=== PATIENT | female | born 1955 | race Caucasian/White ===

== ENCOUNTER → 2016-07-22 07:26 | Outpatient (CLI) | payer MEDICARE ==
[2016-04-08 08:33] VITALS: BMI 31.1
[~2016-07-22 07:26] MED LIST: BENTYL 20 MG TA20 MG PO; BYDUREON P2 MG/0.65 SC; DEXILANT60 MG PO; DYAZIDE 37.5/251 CAP PO; ESTRACE1 MG PO; FLUTICASONE PRO16 GM NASAL; GEMFIBROZIL600 MG PO; GLUCOPHAGE500 MG PO; HYDROCODONE-APA1 TAB PO; LINZESS290 MCG PO; METFORMIN HCL500 M1 PO; MOBIC7.5 MG PO; MOTRIN600 MG PO; NEXIUM40 MG PO; PERCOCET 5-3251 TAB PO; PERCOCET 7.5/321 TAB PO; PHENERGAN25 M1 PO; PREMARIN0.625 MG PO; PRILOSEC20 MG PO; PROMETRIUM200 MG PO; REGLAN10 MG PO; REQUIP1 MG PO; REXULTI1 MG PO; SYNTHROID50 MCG PO; TRINTELLIX5 MG PO; XANAX0.5 MG PO; ZOLOFT100 MG PO; ZYRTEC10 MG PO
== END | disposition home or self-care (01) ==
LOC: D.RAD 07:26
DX: R13.10 Dysphagia, unspecified (principal); R11.2 Nausea with vomiting, unspecified

== ENCOUNTER → 2016-08-27 17:02 | Outpatient (CLI) | payer MEDICARE ==
[2016-04-08 08:33] VITALS: BMI 31.1
== END | disposition home or self-care (01) ==
LOC: D.MAMMO 13:15
DX: Z12.31 Encounter for screening mammogram for malignant neoplasm of breast (principal)

== ENCOUNTER 2016-09-02 05:09 | Day surgery (SDC) | payer MEDICARE ==
[2016-09-01 14:46] LABS: BASOPHILS 0.4 % (0.0-2.0); EOSINOPHILS 2.6 % (0-7); HEMATOCRIT 38.8 % (36.0-48.0); HEMOGLOBIN 12.8 g/dL (12-16); IMMATURE GRANULOCYTES 0.1 % (0-5); LYMPHOCYTES 32.5 % (15-50); MCH 28.5 pg (26.0-34.0); MCV 86.4 fL (80.0-100.0); MEAN PLATELET VOLUME 9.4 fL (7.4-10.4); MONOCYTES 5.3 % (2-11); NEUTROPHILS 59.1 % (40-80); PLATELET COUNT 223 10x3/uL (130-400); RBC 4.49 10x6/uL (4.00-5.40); RDW 13.5 % (11.5-14.5); WBC 7.2 10x3/uL (4.8-10.8)
[2016-09-01 15:14] LABS: ANION GAP 12.5 mmol/L (8-16); CALCIUM 8.8 mg/dL (8.5-10.1); CARBON DIOXIDE 26.6 mmol/L (21.0-32.0); CREATININE - SERUM 0.9 mg/dL (0.6-1.3); POTASSIUM - SERUM 4.1 mmol/L (3.5-5.1)
[2016-09-02] VITALS (11 sets, daily range): BP systolic 118–137; BP diastolic 74–85; Ht 157.5 cm; Wt 75.0 kg
[~2016-09-02] VITALS: Ht 157.5 cm; Wt 75.0 kg
[~2016-09-02 05:09] MED LIST changes: -BYDUREON P2 MG/0.65 SC; -FLUTICASONE PRO16 GM NASAL; -METFORMIN HCL500 M1 PO; -PHENERGAN25 M1 PO; -REGLAN10 MG PO; -REXULTI1 MG PO; -TRINTELLIX5 MG PO
[2016-09-02] MEDS ORDERED: NEXIUM40 MG PO (08:11)
[2016-09-02] MEDS ORDERED: REXULTI1 MG PO (08:14)
[2016-09-02] MEDS ORDERED: TRINTELLIX5 MG PO (08:14)
[2016-09-02] MEDS ORDERED: METFORMIN HCL500 M1 PO (08:15)
[2016-09-02] MEDS ORDERED: FLUTICASONE PRO16 GM NASAL (08:16)
[2016-09-02] MEDS ORDERED: BYDUREON P2 MG/0.65 SC (08:16)
--- NOTE | 2016-09-02 09:42 | NUR ---
YELLOW FIN RETRACTORS AND BUTTOCK STRAP USED FOR POSITIONING.
--- NOTE | 2016-09-02 11:40 | NUR ---
PATIENT RECEIVED TO FLOOR FROM PACU VIA BED. NO SIGNS OF DISTRESS NOTED. VITAL SIGNS STABLE. RESTING QUIETLY WITH EYES CLOSED. WAKES EASY WHEN SPOKE TO. ORIENTED TO ROOM. LAP SITES X5 TO ABD. SCDS ON BILATERALLY. SIDE RAILS UP X2. BED IN LOW POSITION. CALL LIGHT IN REACH.
--- NOTE | 2016-09-02 11:44 | NUR ---
DEMEROL PIPE CHANGER SET ACCORDING TO ORDERS. USE EXPLAINED. SIDE RAILS UP X2. BED IN LOW POSITION. CALL LIGHT AND PIPE CHANGER BUTTON IN REACH.
--- NOTE | 2016-09-02 16:09 | NUR ---
PATIENT RESTING WITH EYES CLOSED. RESPIRATIONS EVEN AND UNLABORED. WAKES EASY. SCHEDULED MEDICATION ADMINISTERED. FAMILY AT BEDSIDE. SIDE RAILS UP X2. BED IN LOW POSITION. CALL LIGHT IN REACH.
--- NOTE | 2016-09-02 16:30 | NUR ---
PATIENT ASSIST UP TO RESTROOM SBA X1. VOIDED WITHOUT DIFFICULTY. ASSIST BACK TO BED. PATIENT POSITIONED SELF FOR COMFORT. FAMILY PRESENT. SIDE RAILS UP X2. BED IN LOW POSITION. CALL LIGHT IN REACH.
--- NOTE | 2016-09-02 16:35 | NUR ---
PATIENT ALERT IN BED. ENCOURAGED AMBULATION. DENIES NEEDS. SIDE RAILS UP X2. BED IN LOW POSITION. CALL LIGHT AND MANAGEMENT TRAINER BUTTON IN REACH.
--- NOTE | 2016-09-02 18:00 | NUR ---
PATIENT IN LOW MAYEN POSITION RESTING WITH EYES CLOSED. RESPIRATIONS EVEN AND UNLABORED. SIDE RAILS UP X2. BED IN LOW POSITION. CALL LIGHT IN REACH.
--- NOTE | 2016-09-02 19:03 | NUR ---
PATIENT C/O NAUSEA. ZOFRAN ADMINISTERED PER PRN ORDER.
--- NOTE | 2016-09-02 19:40 | NUR ---
RECIEVED SHIFT REPORT. PT IS LYING IN BED. ALERT AND ORIENTED AND ABLE TO VERBALIZE NEEDS. IV IS PATENT AND FLUIDS ARE RUNNING PER ORDER. PT IS AMBULATORY WITH ASSISTANCE. SCD'S ON. LAP SITES TO ABDOMEN C/D/I. PT STATES PAIN IS 9/10 WITH HOUSE REPAIRER PUMP. NO NEEDS ARE VERBALIZED AT THIS TIME. WILL CONTINUE TO MONITOR. SIDE RAILS ARE UP X 2. BED IS IN LOWEST POSITION. CALL LIGHT IS WITHIN REACH.
--- NOTE | 2016-09-02 20:05 | NUR ---
SHIFT ASSESSMENT COMPLETED. PT STATUS REMAINS UNCHANGED FROM PREVIOUS. NO NEEDS ARE VOICED. WILL MONITOR. SIDE RAILS X 2. BED LOW. CALL LIGHT IN REACH.
[2016-09-03] VITALS: BP 106/62
[2016-09-03 04:00] VITALS: BP 111/66
[2016-09-03 05:45] LABS: BASOPHILS 0 % (0.0-2.0); EOSINOPHILS 0 % (0-7); HEMATOCRIT 35.6 % (36.0-48.0); HEMOGLOBIN 11.7 g/dL (12-16); IMMATURE GRANULOCYTES 0.2 % (0-5); LYMPHOCYTES 10.8 % (15-50); MCH 27.9 pg (26.0-34.0); MCHC 32.9 g/dL (31.0-37.0); MEAN PLATELET VOLUME 9.7 fL (7.4-10.4); MONOCYTES 4.7 % (2-11); NEUTROPHILS 84.3 % (40-80); PLATELET COUNT 205 10x3/uL (130-400); RBC 4.19 10x6/uL (4.00-5.40); RDW 13.4 % (11.5-14.5)
[2016-09-03 06:11] LABS: ANION GAP 15.6 mmol/L (8-16); CALCIUM 8.5 mg/dL (8.5-10.1); CARBON DIOXIDE 20.6 mmol/L (21.0-32.0); CREATININE - SERUM 0.9 mg/dL (0.6-1.3); POTASSIUM - SERUM 4.2 mmol/L (3.5-5.1)
[2016-09-03 06:24] LABS: WBC 10.4 10x3/uL (4.8-10.8)
--- NOTE | 2016-09-03 07:05 | NUR ---
PATIENT RECEIVED ALERT IN LOW MAYEN POSITION. RESPIRATIONS EVEN AND UNLABORED. DENIES NEEDS. SIDE RAILS UP X2. BED IN LOW POSITION. CALL LIGHT AND CLINICAL INFORMATICIST BUTTON IN REACH.
[2016-09-03 08:05] VITALS: BP 118/64
--- NOTE | 2016-09-03 08:05 | NUR ---
PATIENT ALERT IN BED. NO SIGNS OF DISTRESS NOTED. DENIES NEEDS. SIDE RAILS UP X1. BED IN LOW POSITION. CALL LIGHT IN REACH.
--- NOTE | 2016-09-03 09:45 | NUR ---
IV SALINE LOCKED AND CUPOLA MAN D/C PER ORDER. EXPLAINED TO PATIENT SHE WOULD NEED TO ASK FOR MEDICATIONS WHEN NEEDING IT. STATES UNDERSTANDING. PROVIDED WITH POPSICLE AND WATER. WILL CONTINUE TO MONITOR.
--- NOTE | 2016-09-03 11:07 | NUR ---
PATIENT IN LOW MAYEN POSITION RESTING WITH EYES CLOSED. WAKES EASY. SCHEDULED MEDICATION ADMINISTERED. ENCOURAGED AMBULATION. PATIENT AGREEABLE AND SELF AMBULATES. DENIES NEEDS. BED IN LOW POSITION. CALL LIGHT IN REACH.
--- NOTE | 2016-09-03 11:17 | NUR ---
Patient Name: DANIKA LINDSEY Admission Status: Elective Accout number: [id number] Admission Date: 09-02-2016 : 1955 Admission Diagnosis: Attending: MUSTAPHA Current LOS: 1 Anticipated DC Date: 09-04-2016 Planned Disposition: Home Primary Insurance: MEDICARE A & B Discharge Planning Comments: CM MET WITH PATIENT REGARDING D/C NEEDS AND PLANS. PATIENT STATED SHE LIVES WITH HER PARENTS AND HER DAD (ED) WILL DRIVE HER HOME AT DISCHARGE. PATIENT STATED THEY HAVE STAIRS INSIDE BUT SHE DOES NOT USE THEM. PATIENT IS INDEPENDENT WITH HER CARE AND HAS NO DME AT HOME. PATIENT STATED HER PCP IS DR. BRIGGS AND PHARMACY IS [facility]. PATIENT HAS NOT HAD HOME HEALTH IN THE PAST AND DOES NOT THINK SHE WILL NEED IT AT THIS TIME. CM WILL CONTINUE TO FOLLOW PATIENT WITH D/C NEEDS AND PLANS. PCP [facility] [phone] ED (DAD) [phone] Market Research Associate: Jocelynn Ledbetter Is the patient Alert and Oriented? Yes 0 * How many steps to enter\exit or inside your home? 0 0 * PCP DR. BRIGGS 0 * Pharmacy [facility] 0 * Preadmission Environment Home with Family 0 * ADLs Independent 0 * Equipment None 0 * List name and contact numbers for known caregivers / representatives who currently or will assist patient after discharge: ED (DAD) [phone] * Community resources currently utilized None 0 * Additional services required to return to the preadmission environment? Yes 0 * Can the patient safely return to the preadmission environment? Yes 0 * Has this patient been hospitalized within the prior 30 days at any hospital? No 0 Grand Total: 0
[2016-09-03 12:28] VITALS: BP 118/66
[2016-09-03] MEDS ORDERED: HYDROCODONE-APA1 TAB PO (13:03)
[2016-09-03] MEDS ORDERED: PHENERGAN25 M1 PO (13:04)
[2016-09-03] MEDS ORDERED: REGLAN10 MG PO (13:04)
--- NOTE | 2016-09-03 13:39 | NUR ---
CM REASSESSMENT NOTE: PATIENT IS DISCHARGING HOME TODAY-FAMILY DRIVING HER. PATIENT REFUSED HOME HEALTH OR ANY OTHER NEEDS AT THIS TIME.
--- NOTE | 2016-09-03 14:31 | NUR ---
IV TO LEFT FOREARM D/C WITH CATH TIP INTACT. SITE COVERED WITH GAUZE AND BANDAID.
--- NOTE | 2016-09-03 15:30 | NUR ---
PATIENT SITTING UP ON SIDE OF BED ALERT. D/C TEACHING AND WRITTEN PRESCRIPTION PROVIDED. STATES UNDERSTANDING. DENIES QUESTIONS.
--- NOTE | 2016-09-03 15:35 | NUR ---
PATIENT D/C HOME WITH SON. TRANSFERRED DOWNSTAIRS VIA WHEELCHAIR WITH VOLUNTEER.
--- NOTE | 2016-09-05 13:21 | OP ---
PATIENT NAME: DANIKA LINDSEY MEDICAL RECORD: [id number] :53 LOCATION:[id number] ADMISSION DATE:09/02/16 SURGEON: YEHUDA GRANDA MD DATE OF OPERATION: 09/02/2016 PREOPERATIVE DIAGNOSES: 1. Gastroesophageal reflux disease. 2. Hiatal hernia. 3. Yan esophagus. 4. Hypercholesterolemia. 5. Thyroid disorder. POSTOPERATIVE DIAGNOSES: 1. Gastroesophageal reflux disease. 2. Hiatal hernia. 3. Yan esophagus. 4. Hypercholesterolemia. 5. Thyroid disorder. PROCEDURES: 1. Laparoscopic Edyta with hiatal hernia repair. 2. Laparoscopic lysis of adhesions. SURGEON: Yehuda Granda MD. REPORT OF PROCEDURE: The patient's abdomen was prepped and draped in sterile fashion. A Veress needle was inserted in the left upper quadrant and abdomen was insufflated. An 11-mm Visiport trocar was inserted in the midline above the umbilicus. Once inside, I could see the Veress needle and saw there was no sign of any injury to bowel or surrounding structures. At this point, a 12-mm trocar was placed in the left subcostal region. A 5-mm trocar was placed in the epigastrium and a 5-mm trocar was placed in the left lateral abdomen. The patient had a history of previous open cholecystectomy. Her right subcostal incision had a large amount of fatty adhesions adherent to it. These were taken down carefully with sharp dissection. Once we had these completely freed up, then we were able to place a 5-mm trocar in the right lateral subcostal region. A liver retractor was inserted and the left lobe of the liver was elevated. The patient had just a small hiatal hernia. The lesser omentum was taken down with Harmonic scalpel to the right side of the right elizabeth. The right side of the right elizabeth was dissected free from the esophagus and we were able to dissect up into the thoracic cavity. This was freed up as far as we can go anteriorly and posteriorly, then we went to the greater curvature of the stomach and started taking down the short gastric using Harmonic scalpel. This was continued up to the left side of the right elizabeth. Again, we dissected up into the thoracic cavity and around the esophagus. At this point, we had a 360-degree inspection of the esophagus and the esophagus easily rested in the abdominal cavity. At this point, the esophageal hiatus was reapproximated with interrupted 0 Polydek times 3. We then performed a posterior 360-degree wrap of the fundus of the stomach around the esophagus. This was sutured into place with 0 Polydek times 3. The top and the bottom suture incorporated a bite of the esophagus. At this point, we irrigated out the abdomen and assured there was no sign of any bleeding present. The liver retractor was removed. The 11 mm and 12 mm trocar site fascia were closed with 0 Vicryls using a Ko-Emily suture passer device. The ports and insufflation were then removed. The subcutaneous tissues were infused with a total of 20 mL of 0.25% Marcaine with epinephrine. The skin OPERATIVE REPORT [id number] DANIKA LINDSEY incisions were then closed with subcutaneous 5-0 Monocryl. COMPLICATIONS: None. CONDITION: Stable. ANESTHESIA: General endotracheal and local. BLOOD LOSS: Minimal. TRANSINT:[id number] Voice Confirmation ID: [id number] DOCUMENT ID: [id number] YEHUDA GRANDA MD at 1321 CC: EUSEBIO EASTMAN MD and GERSON BRIGGS M.D. [id number] DICTATION DATE: 09/02/16 1103 DEVELOPMENT ASSISTANT: 09/02/16 1353 DIS IN 09/03/16 [id number] [place] [address]
== END 2016-09-03 15:35 | disposition home or self-care (01) ==
LOC: D.OPS 05:09 → D.MS 05:09 → D.OPS 09:00 → D.MS 11:26 → D.OPS 11:27 → D.MS 11:27 → D.OPS 11:27 → D.MS 09-03 15:35
PROVIDERS: Surgery
DX: K21.9 Gastro-esophageal reflux disease without esophagitis (principal); K44.9 Diaphragmatic hernia without obstruction or gangrene; K22.70 Barrett's esophagus without dysplasia; E78.00 Pure hypercholesterolemia, unspecified; E07.9 Disorder of thyroid, unspecified

== ENCOUNTER 2016-09-04 12:52 | Emergency (ER) | payer MEDICARE ==
[2016-09-02 12:25] VITALS: BMI 30.2
[~2016-09-04 12:52] MED LIST changes: +BYDUREON P2 MG/0.65 SC; +FLUTICASONE PRO16 GM NASAL; +METFORMIN HCL500 M1 PO; +PHENERGAN25 M1 PO; +REGLAN10 MG PO; +REXULTI1 MG PO; +TRINTELLIX5 MG PO
== END 2016-09-04 18:31 | disposition home or self-care (01) ==
LOC: D.ER 12:52
DX: I63.9 Cerebral infarction, unspecified (principal); R53.1 Weakness; R73.03 Prediabetes; C50.919 Malignant neoplasm of unspecified site of unspecified female breast; I10 Essential (primary) hypertension; E03.9 Hypothyroidism, unspecified

== ENCOUNTER 2018-01-20 08:55 | Inpatient (IN) | payer MEDICARE ==
[~2018-01-20] VITALS: Ht 157.5 cm; Wt 75.3 kg
[2018-01-20] MEDS ORDERED: CYCLOBENZAPRINE10 MG PO (09:02)
[2018-01-20] MEDS ORDERED: GABAPENTIN100 MG PO (09:02)
[2018-01-20 09:25] LABS: BASOPHILS 0.1 % (0-2); EOSINOPHILS 0.6 % (0-7); HEMATOCRIT 37.1 % (36.0-48.0); HEMOGLOBIN 12.7 g/dL (12-16); IMMATURE GRANULOCYTES 0.2 % (0-5); LYMPHOCYTES 19.2 % (15-50); MCH 29.5 pg (26.0-34.0); MCHC 34.2 g/dL (31.0-37.0); MCV 86.3 fL (80.0-100.0); MONOCYTES 6.7 % (2-11); NEUTROPHILS 73.2 % (40-80); PLATELET COUNT 224 10x3/uL (130-400); WBC 9.5 10x3/uL (4.8-10.8)
[2018-01-20 09:46] LABS: ALKALINE PHOSPHATASE 81 U/L (46-116); ALT (SGPT) 21 U/L (10-68); BILIRUBIN - TOTAL 0.99 mg/dL (0.2-1.3); CALC OSMOLALITY 278 mosm/kg (275-300); CALCIUM 8.9 mg/dL (8.5-10.1); CARBON DIOXIDE 27.7 mmol/L (21.0-32.0); CHLORIDE - SERUM 104 mmol/L (98-107); CREATININE - SERUM 0.9 mg/dL (0.6-1.3); GLUCOSE 100 mg/dL (74-106); POTASSIUM - SERUM 3.6 mmol/L (3.5-5.1); SODIUM 140 mmol/L (136-145); UREA NITROGEN 13 mg/dL (7-18); eGFR NON AFRICAN AMERICAN 67 mL/min (90-120)
[2018-01-20 09:49] LABS: AMYLASE - SERUM 156 U/L (25-115); LIPASE 91 U/L (73-393)
[2018-01-20 09:50] LABS: TROPONIN-I < 0.017 ng/mL (0.000-0.060)
[2018-01-20 09:59] LABS: APPEARANCE HAZY (CLEAR); BILIRUBIN NEGATIVE (NEGATIVE); COLOR YELLOW (YELLOW); GLUCOSE NEGATIVE (NEGATIVE); KETONE NEGATIVE (NEGATIVE); NITRITE NEGATIVE (NEGATIVE); PROTEIN NEGATIVE (NEGATIVE); UROBILINOGEN NORMAL (NORMAL)
[2018-01-20 10:04] LABS: BACTERIA MODERATE /hpf (NONE SEEN); EPITHELIAL CELLS 0-5 /hpf (0-5); RED CELLS - URINE OCC /hpf (0-5); WHITE CELLS - URINE RARE /hpf (0-5)
[2018-01-20] MEDS ORDERED: ADDERALL 12.512.5 MG PO (14:47)
[2018-01-20 15:50] VITALS: BP 118/98; BMI 30.4
[2018-01-20 19:50] VITALS: BP 102/60
[2018-01-21] VITALS: BP 93/54
[2018-01-21 04:00] VITALS: BP 92/49
[2018-01-21 05:46] LABS: BASOPHILS 0.1 % (0-2); EOSINOPHILS 1.6 % (0-7); HEMATOCRIT 33.9 % (36.0-48.0); HEMOGLOBIN 11.3 g/dL (12-16); IMMATURE GRANULOCYTES 0.2 % (0-5); LYMPHOCYTES 22.1 % (15-50); MCH 29.2 pg (26.0-34.0); MCHC 33.3 g/dL (31.0-37.0); MCV 87.6 fL (80.0-100.0); MEAN PLATELET VOLUME 9.9 fL (7.4-10.4); MONOCYTES 11.8 % (2-11); NEUTROPHILS 64.2 % (40-80); PLATELET COUNT 191 10x3/uL (130-400); RBC 3.87 10x6/uL (4.00-5.40); RDW 13.3 % (11.5-14.5); WBC 9.4 10x3/uL (4.8-10.8)
[2018-01-21 06:17] LABS: ALBUMIN 2.3 g/dL (3.4-5.0); ALKALINE PHOSPHATASE 70 U/L (46-116); ALT (SGPT) 22 U/L (10-68); BILIRUBIN - TOTAL 0.92 mg/dL (0.2-1.3); CALC OSMOLALITY 282 mosm/kg (275-300); CALCIUM 7.7 mg/dL (8.5-10.1); CARBON DIOXIDE 22.4 mmol/L (21.0-32.0); CHLORIDE - SERUM 108 mmol/L (98-107); CREATININE - SERUM 0.7 mg/dL (0.6-1.3); GLUCOSE 74 mg/dL (74-106); PROTEIN - SERUM 5.4 g/dL (6.4-8.2); SODIUM 143 mmol/L (136-145); UREA NITROGEN 10 mg/dL (7-18); eGFR NON AFRICAN AMERICAN 90 mL/min (90-120)
[2018-01-21 08:19] VITALS: BP 98/52
[2018-01-21 12:55] VITALS: BP 95/56
[2018-01-21 13:03] VITALS: Ht 157.5 cm; Wt 75.3 kg
[2018-01-21 16:00] VITALS: BP 90/53
[2018-01-21 20:00] VITALS: BP 128/56
[2018-01-22 04:00] VITALS: BP 94/49
[2018-01-22 05:41] LABS: CALC OSMOLALITY 283 mosm/kg (275-300); CALCIUM 7.2 mg/dL (8.5-10.1); CARBON DIOXIDE 24.8 mmol/L (21.0-32.0); CHLORIDE - SERUM 112 mmol/L (98-107); CREATININE - SERUM 0.8 mg/dL (0.6-1.3); GLUCOSE 89 mg/dL (74-106); POTASSIUM - SERUM 3.5 mmol/L (3.5-5.1); SODIUM 144 mmol/L (136-145); eGFR NON AFRICAN AMERICAN 77 mL/min (90-120)
[2018-01-22 05:44] LABS: BASOPHILS 0.3 % (0-2); EOSINOPHILS 3.1 % (0-7); HEMATOCRIT 30.2 % (36.0-48.0); IMMATURE GRANULOCYTES 0.3 % (0-5); LYMPHOCYTES 24.1 % (15-50); MCH 29.1 pg (26.0-34.0); MCHC 33.1 g/dL (31.0-37.0); MCV 87.8 fL (80.0-100.0); MEAN PLATELET VOLUME 9.5 fL (7.4-10.4); MONOCYTES 8.6 % (2-11); NEUTROPHILS 63.6 % (40-80); PLATELET COUNT 201 10x3/uL (130-400); RBC 3.44 10x6/uL (4.00-5.40); RDW 12.9 % (11.5-14.5)
[2018-01-22 05:47] LABS: UREA NITROGEN 6 mg/dL (7-18)
[2018-01-22 05:48] LABS: WBC 5.7 10x3/uL (4.8-10.8)
[2018-01-22 08:30] VITALS: BP 93/53
[2018-01-22 12:57] VITALS: BP 119/68
[2018-01-22 16:32] VITALS: BP 105/61
[2018-01-22 20:00] VITALS: BP 101/60
[2018-01-23] VITALS: BP 103/58
[2018-01-23 05:58] LABS: BASOPHILS 0.2 % (0-2); EOSINOPHILS 4.6 % (0-7); HEMATOCRIT 29.8 % (36.0-48.0); HEMOGLOBIN 9.9 g/dL (12-16); IMMATURE GRANULOCYTES 0.4 % (0-5); LYMPHOCYTES 35.7 % (15-50); MCH 28.5 pg (26.0-34.0); MCHC 33.2 g/dL (31.0-37.0); MCV 85.9 fL (80.0-100.0); MEAN PLATELET VOLUME 9.7 fL (7.4-10.4); NEUTROPHILS 53.1 % (40-80); PLATELET COUNT 240 10x3/uL (130-400); RBC 3.47 10x6/uL (4.00-5.40); RDW 12.9 % (11.5-14.5)
[2018-01-23 06:13] LABS: ANION GAP 10.3 mmol/L (8-16); CALCIUM 7.5 mg/dL (8.5-10.1); CARBON DIOXIDE 23.7 mmol/L (21.0-32.0); CREATININE - SERUM 0.9 mg/dL (0.6-1.3)
[2018-01-23 09:24] VITALS: BP 124/80
[2018-01-23 12:59] VITALS: BP 128/68
[2018-01-23 18:12] VITALS: BP 117/72
[2018-01-23 20:00] VITALS: BP 122/70
[2018-01-24 04:00] VITALS: BP 114/68
[2018-01-24 04:33] LABS: BASOPHILS 0.4 % (0-2); EOSINOPHILS 4.9 % (0-7); HEMOGLOBIN 10.3 g/dL (12-16); IMMATURE GRANULOCYTES 0.4 % (0-5); LYMPHOCYTES 39.5 % (15-50); MCHC 34.3 g/dL (31.0-37.0); MCV 84.5 fL (80.0-100.0); NEUTROPHILS 47.8 % (40-80); PLATELET COUNT 243 10x3/uL (130-400); RBC 3.55 10x6/uL (4.00-5.40); RDW 12.7 % (11.5-14.5); WBC 5.1 10x3/uL (4.8-10.8)
[2018-01-24 04:43] LABS: CALC OSMOLALITY 287 mosm/kg (275-300); CALCIUM 7.4 mg/dL (8.5-10.1); CARBON DIOXIDE 25.9 mmol/L (21.0-32.0); CHLORIDE - SERUM 113 mmol/L (98-107); CREATININE - SERUM 0.8 mg/dL (0.6-1.3); GLUCOSE 93 mg/dL (74-106); SODIUM 146 mmol/L (136-145); UREA NITROGEN 3 mg/dL (7-18); eGFR NON AFRICAN AMERICAN 77 mL/min (90-120)
[2018-01-24 08:41] VITALS: BP 125/70
[2018-01-24] MEDS ORDERED: LEVAQUIN500 MG PO (09:11)
[2018-01-24] MEDS ORDERED: PROTONIX40 MG PO (09:12)
[2018-01-24] MEDS ORDERED: FLAGYL500 MG PO (09:12)
== END 2018-01-24 11:15 | disposition home or self-care (01) | DRG 372 ==
LOC: D.ER 08:55 → D.MS 14:00 → D.EDHOLD 14:00 → D.MS 14:08
PROVIDERS: Family Medicine; Internal Medicine Nephrology
DX: A04.9 Bacterial intestinal infection, unspecified (principal); N39.0 Urinary tract infection, site not specified; G90.50 Complex regional pain syndrome I, unspecified; K55.9 Vascular disorder of intestine, unspecified; K21.9 Gastro-esophageal reflux disease without esophagitis; D64.9 Anemia, unspecified; E66.9 Obesity, unspecified; F32.9 Major depressive disorder, single episode, unspecified; D12.0 Benign neoplasm of cecum; K64.8 Other hemorrhoids; K58.9 Irritable bowel syndrome, unspecified; A08.4 Viral intestinal infection, unspecified

== ENCOUNTER 2018-05-27 08:00 | Outpatient (CLI) | payer MEDICARE ==
[2018-01-21 13:03] VITALS: BMI 30.3
[~2018-05-27 08:00] MED LIST changes: +ADDERALL 12.512.5 MG PO; +CYCLOBENZAPRINE10 MG PO; +FLAGYL500 MG PO; +GABAPENTIN100 MG PO; +LEVAQUIN500 MG PO; +PROTONIX40 MG PO
== END 2018-05-27 09:00 | disposition home or self-care (01) ==
LOC: D.MAMMO 08:00
DX: Z12.31 Encounter for screening mammogram for malignant neoplasm of breast (principal)

== ENCOUNTER → 2019-06-21 13:51 | Outpatient (CLI) | payer MEDICARE ==
[2018-01-21 13:03] VITALS: BMI 30.3
== END | disposition home or self-care (01) ==
LOC: D.MRI 13:51
PROVIDERS: ATTEND Clinical Nurse Specialist Family Health
DX: M25.562 Pain in left knee (principal)

== ENCOUNTER → 2019-10-20 11:08 | Outpatient (CLI) | payer MEDICARE ==
[2018-01-21 13:03] VITALS: BMI 30.3
== END | disposition home or self-care (01) ==
LOC: D.MRI 11:08
PROVIDERS: ATTEND Clinical Nurse Specialist Family Health
DX: M54.16 Radiculopathy, lumbar region (principal)

== ENCOUNTER → 2019-11-01 13:33 | Outpatient (CLI) | payer MEDICARE ==
[2018-01-21 13:03] VITALS: BMI 30.3
== END | disposition home or self-care (01) ==
LOC: D.US 13:33
PROVIDERS: ATTEND Nurse Practitioner Family
DX: I12.9 Hypertensive chronic kidney disease with stage 1 through stage 4 chronic kidney disease, or unspecified chronic kidney disease (principal); N18.3 Chronic kidney disease, stage 3 (moderate)

== ENCOUNTER → 2019-11-08 19:15 | Outpatient (CLI) | payer MEDICARE ==
[2018-01-21 13:03] VITALS: BMI 30.3
== END | disposition home or self-care (01) ==
LOC: D.MAMMO 11:30
PROVIDERS: ATTEND Family Medicine
DX: Z12.31 Encounter for screening mammogram for malignant neoplasm of breast (principal)

== ENCOUNTER → 2019-12-05 08:37 | Outpatient (CLI) | payer MEDICARE ==
[2018-01-21 13:03] VITALS: BMI 30.3
== END | disposition home or self-care (01) ==
LOC: D.MRI 11-30 08:00
PROVIDERS: ATTEND Internal Medicine Gastroenterology
DX: Z87.19 Personal history of other diseases of the digestive system (principal)